=== PATIENT | male | born 1970 | race Caucasian/White ===

== ENCOUNTER 2016-10-03 18:20 | Emergency (ER) | payer BC ==
[~2016-10-03] VITALS: Ht 182.9 cm; Wt 84.1 kg
[2016-10-03 18:24] VITALS: TEMP 98.1
[2016-10-03 19:04] LABS: BASO # 0.1 (0.0-0.2); BASO % 0.4 % (0.0-2.0); EOS # 0.1 (0.0-0.7); EOS % 1.1 % (0-4.0); GRAN % 71.5 % (42.2-75.2); HEMATOCRIT 40.7 % (42.0-52.0); LYMPH # 2.1 (1.2-3.4); LYMPH % 19.1 % (20.0-51.0); MEAN CELL VOLUME 93 fl (80.0-100.0); MEAN CORPUSCULAR HEMOGLOBIN 32 pg (27.0-31.0); MEAN CORPUSCULAR HGB CONC 34 g/dl (33.0-37.0); MEAN PLATELET VOLUME 11.1 fl (7.4-10.4); MONO # 0.9 (0.1-0.6); MONO % 7.6 % (1.7-9.3); PLATELET COUNT 216 K/mm3 (130-400); REDCELL DISTRIBUTION WIDTH-CV 12.7 % (11.5-14.5); WHITE BLOOD COUNT 11.1 K/mm3 (4.8-10.8)
[2016-10-03 19:09] LABS: PH 5 (5-8); SQUAMOUS EPITHELIAL 0-2 /hpf; URINE APPEARANCE Clear; URINE BACTERIA None Seen /hpf; URINE BILIRUBIN Negative (NEGATIVE); URINE BLOOD Negative (NEGATIVE); URINE COLOR Yellow; URINE GLUCOSE Negative (NEGATIVE); URINE KETONE Negative (NEGATIVE); URINE UROBILINOGEN Negative (NEGATIVE); URINE WBC 0-2 /hpf
[2016-10-03 19:16] LABS: ADJUSTED CALCIUM 9.2 mg/dL (8.4-10.2); ALANINE AMINOTRANSFERASE 22 U/L (21-72); ALBUMIN 4.4 gm/dL (3.5-5.0); ALKALINE PHOSPHATASE 99 U/L (50-136); ANION GAP 12 mmol/L (7-16); BLOOD UREA NITROGEN 17 mg/dL (9-20); C-REACTIVE PROTEIN 6.1 mg/dL (0.0-0.9); CALCIUM 9.5 mg/dL (8.4-10.2); CARBON DIOXIDE 28 mmol/L (22-30); CHLORIDE 101 mmol/L (98-107); CREATININE, serum 1.01 mg/dL (0.66-1.25); GLUCOSE 90 mg/dL (74-106); LIPASE 74 U/L (23-300); POTASSIUM 3.8 mmol/L (3.4-5.0); SODIUM 141 mmol/L (137-145); TOTAL PROTEIN 7.9 gm/dL (6.4-8.2)
[2016-10-03 19:29] LABS: TROPONIN-I < 0.012 ng/mL (0.000-0.034)
[2016-10-03] MEDS ORDERED: CIPRO 500MG TA500 MG PO (20:08)
[2016-10-03] MEDS ORDERED: FLAGYL500 MG PO (20:08)
[2016-10-03] MEDS ORDERED: NORCO 325 MG-51 TAB PO (20:08)
[2016-10-03] MEDS ORDERED: ZOFRAN 4MG T4 MG/TAB PO (20:08)
[2016-10-03 20:22] VITALS: BP 123/84; PULSE 85
== END 2016-10-03 20:25 | disposition home or self-care (01) ==
LOC: COL.ER 18:20
PROVIDERS: Emergency Medicine
DX: K57.32 Diverticulitis of large intestine without perforation or abscess without bleeding (principal)
CPT/HCPCS: J1170; J2405; J7030; Q9967

== ENCOUNTER → 2018-10-07 | Outpatient (CLI) | payer BC ==
[~2018-10-07] MED LIST: CIPRO 500MG TA500 MG PO; FLAGYL500 MG PO; NORCO 325 MG-51 TAB PO; ZOFRAN 4MG T4 MG/TAB PO
== END ==
LOC: ZCOL.LAB 16:11
DX: T14.8XXA Other injury of unspecified body region, initial encounter (principal)

== ENCOUNTER 2020-12-18 17:19 | Emergency (ER) | payer OTHER ==
[~2020-12-18] VITALS: Ht 180.3 cm; Wt 79.5 kg
[2020-12-18 17:33] VITALS: TEMP 98.2
[2020-12-18 17:49] LABS: COLLECTION METHOD CLEAN CATCH
[2020-12-18 17:53] LABS: BASO % 0.4 % (0.0-2.0); EOS % 0.4 % (0-4.0); GRAN # 9.4 (1.4-6.5); GRAN % 88.1 % (42.2-75.2); HEMATOCRIT 42.4 % (42.0-52.0); HEMOGLOBIN 14.2 g/dl (13.5-18.0); LYMPH # 0.6 (1.2-3.4); LYMPH % 5.5 % (20.0-51.0); MEAN CELL VOLUME 93 fl (80.0-100.0); MEAN CORPUSCULAR HEMOGLOBIN 31 pg (27.0-31.0); MEAN CORPUSCULAR HGB CONC 34 g/dl (33.0-37.0); MONO # 0.6 (0.1-0.6); MONO % 5.3 % (1.7-9.3); PLATELET COUNT 217 K/mm3 (130-400); RED BLOOD COUNT 4.56 M/mm3 (4.20-5.60); REDCELL DISTRIBUTION WIDTH-CV 13.1 % (11.5-14.5)
[2020-12-18 18:05] LABS: ALBUMIN 4.4 gm/dL (3.5-5.0); BILIRUBIN,TOTAL 0.7 mg/dL (0.0-1.0); CALCIUM 9.4 mg/dL (8.4-10.2); CREATININE, serum 0.91 (0.66-1.25); POTASSIUM 3.6 mmol/L (3.4-5.0); TOTAL PROTEIN 8.3 gm/dL (6.4-8.2)
[2020-12-18 18:13] LABS: MUCOUS Present /lpf; PH 5 (5-8); SQUAMOUS EPITHELIAL 0-2 /hpf; URINE APPEARANCE Cloudy; URINE BACTERIA Rare /hpf; URINE BILIRUBIN Negative (NEGATIVE); URINE BLOOD 3+ (NEGATIVE); URINE COLOR Yellow; URINE GLUCOSE Negative (NEGATIVE); URINE KETONE Negative (NEGATIVE); URINE LEUKOCYTE ESTERASE 3+ (NEGATIVE); URINE NITRATE Negative (NEGATIVE); URINE PROTEIN(semi-quant) 2+ (NEGATIVE); URINE RBC >50 /hpf
[2020-12-18 20:03] VITALS: BP 107/71; PULSE 92
[2020-12-19] MEDS ORDERED: CIPRO 500MG TA500 MG PO (18:24)
== END 2020-12-18 20:06 | disposition home or self-care (01) ==
LOC: COL.ER 17:19
PROVIDERS: Physician Assistant
DX: R30.0 Dysuria (principal); F17.210 Nicotine dependence, cigarettes, uncomplicated
CPT/HCPCS: J0696; J7030

== ENCOUNTER 2020-12-27 18:46 | Emergency (ER) | payer OTHER ==
[~2020-12-27] VITALS: Ht 182.9 cm; Wt 79.5 kg
[2020-12-27 19:20] VITALS: TEMP 98.1
[2020-12-27 20:29] VITALS: BP 108/63; PULSE 85
== END 2020-12-27 20:34 | disposition home or self-care (01) ==
LOC: COL.ER 18:46
DX: M25.532 Pain in left wrist (principal); F17.210 Nicotine dependence, cigarettes, uncomplicated; V03.10XA Pedestrian on foot injured in collision with car, pick-up truck or van in traffic accident, initial encounter

== ENCOUNTER 2022-02-16 08:47 | Day surgery (SDC) | payer OTHER ==
[~2022-02-16] VITALS: Ht 185.4 cm; Wt 82.9 kg
[2022-02-16] MEDS ORDERED: LIPITOR 10MG10 MG PO (10:13)
[2022-02-16 10:15] VITALS: BP 119/80; PULSE 68; TEMP 97.4
[2022-02-16 11:10] VITALS: BP 103/77; PULSE 82
--- NOTE | 2022-02-16 11:10 | NUR ---
pt to [facility] via cart from endo lab, walked to chair, girlfriend now in room, call light in reach, takes snack, no c/o
[2022-02-16 11:25] VITALS: BP 110/72; PULSE 68
[2022-02-16 11:40] VITALS: BP 118/71; PULSE 68
--- NOTE | 2022-02-16 11:45 | NUR ---
pt up in room dressed, iv d'cd, waits for Dr for discharge
--- NOTE | 2022-02-16 12:10 | NUR ---
into see pt and discuss procedure results, pt then discharged via w/c to car
== END 2022-02-16 12:15 | disposition home or self-care (01) ==
LOC: SDCO 08:47
DX: Z12.11 Encounter for screening for malignant neoplasm of colon (principal); D12.5 Benign neoplasm of sigmoid colon; K57.30 Diverticulosis of large intestine without perforation or abscess without bleeding; C44.90 Unspecified malignant neoplasm of skin, unspecified; F17.210 Nicotine dependence, cigarettes, uncomplicated; Z28.310 Unvaccinated for COVID-19; Z28.9 Immunization not carried out for unspecified reason
CPT/HCPCS: J2704; J7120